=== PATIENT | male | born 1995 | race American Indian/Alaskan Native ===

== ENCOUNTER 2020-05-15 02:24 | Emergency (ER) | payer SELFPAY ==
[2020-05-15 02:41] VITALS: BP 115/72
[2020-05-15 03:45] LABS: BUN/Creatinine Ratio 20; Blood Urea Nitrogen 16 mg/dL (9-20); Calcium 9.6 mg/dL (8.4-10.2); Hemolysis Index 1
[2020-05-15 04:18] LABS: Basophils % (Auto) 0.4 % (0.0-1.8); Eosinophils % (Auto) 0.3 % (0.0-4.3); Hemoglobin 13.8 gm/dl (11.8-15.2); Lymphocytes # (Auto) 1.4 K/mm3 (1.2-5.4); Lymphocytes % (Auto) 30.2 % (13.4-35.0); Monocytes # (Auto) 0.5 K/mm3 (0.0-0.8); Monocytes % (Auto) 10.5 % (0.0-7.3)
[2020-05-15 04:28] LABS: Hematocrit 41.3 % (35.5-45.6); Mean Corpuscular HGB Conc 34 % (32-34); Mean Corpuscular Volume 81 fl (84-94); Platelet Count 285 K/mm3 (140-440); Red Blood Count 5.08 M/mm3 (3.65-5.03); Red Cell Distribution Width 14.7 % (13.2-15.2)
--- NOTE | 2020-05-15 04:30 | XRay Report ---
CHEST 1 VIEW 0354 INDICATION / CLINICAL INFORMATION: dyspnea COMPARISON: None available. FINDINGS: SUPPORT DEVICES: None HEART / MEDIASTINUM: No significant abnormality. LUNGS / PLEURA: No significant pulmonary or pleural abnormality. No pneumothorax. ADDITIONAL FINDINGS: No significant additional findings. IMPRESSION: No significant acute abnormality Signer Name: Charli Blancas MD Signed: 05/15/2020 4:26 AM Workstation Name: [id number]
[2020-05-15 04:45] LABS: Alanine Aminotransferase 14 units/L (7-56); Albumin 4.1 g/dL (3.9-5)
[2020-05-15 04:57] LABS: Bilirubin,Direct < 0.2 mg/dL (0-0.2)
--- NOTE | 2020-05-15 04:58 | Emergency Department Report ---
ED General Adult HPI - General Chief complaint: Weakness Stated complaint: WEAKNESS Source: patient Mode of arrival: Stretcher Limitations: No Limitations - History of Present Illness Initial comments: Patient is a 24-year-old -[place] male with no past medical history pr esents to the ED via EMS with complaint of acute onset generalized weakness and fatigue for 3 hours. Patient states that he was resting at home when he started feeling lightheaded, generalized weakness, subjective fever and fatigue and called the EMS to bring him to the ED for evaluation. Patient denies cough, chest pain, shortness of breath, nausea vomiting, diarrhea, abdominal pain, dizziness, syncope, cough, headache, nasal and sinus congestion or sore throat, dysuria or urinary frequency and urgency. MD Complaint: Generalized weakness and malaise -: Sudden, hour(s) (2) Location: head Radiation: non-radiation Severity scale (0 -10): 2 Quality: dull Consistency: constant Improves with: none Worsens with: none Associated Symptoms: denies other symptoms, loss of appetite, malaise, weakness. denies: confusion, chest pain, cough, diaphoresis, fever/chills, headaches, nausea/vomiting, rash, seizure, shortness of breath, syncope Treatments Prior to Arrival: none - Related Data Allergies Allergy/AdvReac Type Severity Reaction Status Date / Time No Known Allergies Allergy Unverified 05/15/20 02:46 ED Review of Systems ROS: Stated complaint: WEAKNESS Other details as noted in HPI Constitutional: weakness. denies: chills, fever Eyes: denies: eye pain, eye discharge, vision change ENT: denies: ear pain, throat pain Respiratory: denies: cough, shortness of breath, wheezing Cardiovascular: denies: chest pain, palpitations Endocrine: no symptoms reported Gastrointestinal: denies: abdominal pain, nausea, diarrhea Genitourinary: denies: urgency, dysuria Musculoskeletal: denies: back pain, joint swelling, arthralgia Skin: denies: rash, lesions Neurological: other (Lightheadedness). denies: headache, weakness, paresthesias Psychiatric: denies: anxiety, depression Hematological/Lymphatic: denies: easy bleeding, easy bruising ED Past Medical Hx - Past Medical History Previous Medical History?: Yes Hx Asthma: Yes - Surgical History Past Surgical History?: No - Social History Smoking Status: Current Every Day Smoker Substance Use Type: None ED Physical Exam - General Limitations: No Limitations General appearance: alert, in no apparent distress - Head Head exam: Present: atraumatic, normocephalic, normal inspection - Eye Eye exam: Present: normal appearance, PERRL, EOMI Pupils: Present: normal accommodation - ENT ENT exam: Present: normal exam, normal orophraynx, mucous membranes moist, TM's normal bilaterally, normal external ear exam - Neck Neck exam: Present: normal inspection, full ROM - Respiratory Respiratory exam: Present: normal lung sounds bilaterally. Absent: respiratory distress, wheezes, rhonchi, stridor, chest wall tenderness - Cardiovascular Cardiovascular Exam: Present: normal rhythm, tachycardia, normal heart sounds. Absent: systolic murmur, diastolic murmur, rubs, gallop - GI/Abdominal GI/Abdominal exam: Present: soft, normal bowel sounds. Absent: tenderness, guarding, rebound, hyperactive bowel sounds, hypoactive bowel sounds, organomegaly, mass - Extremities Exam Extremities exam: Present: normal inspection, full ROM, normal capillary refill - Back Exam Back exam: Present: normal inspection, full ROM. Absent: tenderness, CVA tenderness (R), muscle spasm, paraspinal tenderness, vertebral tenderness - Neurological Exam Neurological exam: Present: alert, oriented X3, CN II-XII intact, normal gait, reflexes normal - Psychiatric Psychiatric exam: Present: normal affect, normal mood, anxious - Skin Skin exam: Present: warm, dry, intact, normal color. Absent: rash ED Course Vital Signs 05/15/20 05/15/20 02:39 05:05 Temperature 99.0 F Pulse Rate 106 H 89 Respiratory 16 18 Rate Blood Pressure 115/72 O2 Sat by Pulse 95 97 Oximetry ED Medical Decision Making - Lab Data Result diagrams: 05/15/20 03:12 05/15/20 03:12 - Radiology Data Radiology results: report reviewed, image reviewed Findings [facility] [address] [place] [address] XRay Report Signed Patient: LUL AMANDA MR#: [id number] : 1995 Acct:[id number] Age/Sex: 24 / M ADM Date: 05/15/20 Loc: ED Attending Dr: Ordering Physician: ANTIONE ARENAS Date of Service: 05/15/20 Procedure(s): XR chest 1V ap Accession Number(s): [id number] cc: ANTIONE ARENAS Fluoro Time In Minutes: CHEST 1 VIEW 0354 INDICATION / CLINICAL INFORMATION: dyspnea COMPARISON: None available. FINDINGS: SUPPORT DEVICES: None HEART / MEDIASTINUM: No significant abnormality. LUNGS / PLEURA: No significant pulmonary or pleural abnormality. No pneumothorax. ADDITIONAL FINDINGS: No significant additional findings. IMPRESSION: No significant acute abnormality Signer Name: Charli Blancas MD Signed: 05/15/2020 4:26 AM Workstation Name: [id number] Transcribed By: VIVIANA Dictated By: Charli Blancas MD Electronically Authenticated By: Charli Blancas MD Signed Date/Time: 05/15/20425 DD/ 4 TD/TT: - Medical Decision Making This is a 24-year-old -[place] male with no past medical history presents to the ED via EMS with complaint of acute onset generalized weakness and fatigue for 3 hours. Patient states that he was resting at home when he started feeling lightheaded, generalized weakness, subjective fever and fatigue and called the EMS to bring him to the ED for evaluation. In the ED, patient is alert and oriented x3 and is not in distress, sleeping during the physical exam. Lab test results were reviewed and are all nonactionable. Chest x-ray shows no acute cardiopulmonary abnormalities or pneumonitis. Patient was discharged home and advised to follow-up with his primary care physician in 5 to 7 days for reevaluation. Patient was advised return to the ED immediately if symptoms get worse. - Differential Diagnosis anxiety; pneumonia; viral URI; Insomnia Critical care attestation.: If time is entered above; I have spent that time in minutes in the direct care of this critically ill patient, excluding procedure time. ED Disposition Clinical Impression: Generalized weakness, Anxiety as acute reaction to exceptional stress Disposition: DC-01 TO HOME OR SELFCARE Is pt being admited?: No Does the pt Need Aspirin: No Condition: Stable Instructions: Generalized Anxiety Disorder (ED), Fatigue (ED) Additional Instructions: All lab test results and imaging reports are unremarkable with no acute abnormalities. Therefore follow-up with your primary care physician in 2 to 3 days for reevaluation or return to the ED immediately if symptoms get worse. Referrals: [facility] [Provider Group] - 3-5 Days Time of Disposition: 04:58 Print Language: CROATIAN
== END 2020-05-15 05:05 | disposition home or self-care (01) ==
LOC: ED 02:24
DX: F41.1 Generalized anxiety disorder (principal); F43.0 Acute stress reaction; R53.1 Weakness; J45.909 Unspecified asthma, uncomplicated; F17.200 Nicotine dependence, unspecified, uncomplicated
CPT/HCPCS: 36415; 71045; 80048; 80076; 85025

== ENCOUNTER 2020-05-16 09:49 | Emergency (ER) | payer SELFPAY | END 2020-05-16 09:50 | disposition left against medical advice (07) | LOC: ED 09:49 | DX: R00.0 Tachycardia, unspecified (principal); Z53.21 Procedure and treatment not carried out due to patient leaving prior to being seen by health care provider ==